=== PATIENT | male | born 2000 | race Caucasian/White ===

== ENCOUNTER 2023-01-20 10:14 | Emergency (ER) | payer BC, OTHER ==
[~2023-01-20] VITALS: Ht 193 cm; Wt 59.0 kg
[2023-01-20] MEDS ORDERED: IV NORMAL SALINE 1000 ML BAG IV ONE (10:45)
[2023-01-20] MEDS ORDERED: KETOROLAC TROMETHAMINE 15 MG INJ IVP ONE (10:45)
[2023-01-20] MEDS ORDERED: KETOROLAC TROMETHAMINE 15 MG INJ ONE (10:55)
[2023-01-20 11:01] LABS: HEMATOCRIT 45.8 % (36.7-47.1); MEAN CORPUSCULAR VOLUME 85.3 fL (73.0-96.2); PLATELET COUNT (AUTO) 183 K/uL (152-348)
[2023-01-20 11:02] LABS: *BILIRUBIN,URIN NEGATIVE (NEGATIVE); *BLOOD, URINE 3+ (NEGATIVE); *CLARITY,URINE SLIGHTLY CLOUDY (CLEAR); *COLOR,URINE YELLOW (YELLOW); *KETONES,URINE NEGATIVE (NEGATIVE); *UROBILINOGEN,URINE 0.2 E.U./dl (NORMAL); LEUKOCYTE ESTERASE ,URINE NEGATIVE (NEGATIVE); NITRITE, URINE NEGATIVE (NEGATIVE); UGLUCOSE NEGATIVE (NEGATIVE)
[2023-01-20 11:10] LABS: POTASSIUM 4.1 mmol/L (3.5-5.1)
[2023-01-20 11:16] LABS: BILIRUBIN,DIRECT 0.1 mg/dL (0.0-0.2); BILIRUBIN,TOTAL 0.4 mg/dL (0.2-1.0); TOTAL PROTEIN, SERUM 7.8 g/dL (6.4-8.2)
[2023-01-20] MEDS ORDERED: HYDR-3974 PO (12:36)
[2023-01-20] MEDS ORDERED: ONDA4TAB5 PO (12:36)
[2023-01-20] MEDS ORDERED: TAMS-3 PO (12:36)
[2023-01-20] MEDS ORDERED: IBUP-1955 PO (12:36)
--- NOTE | 2023-01-20 12:55 | NUR ---
IV removed. Catheter intact and site benign. Pressure and 4x4 gauze applied to site. No bleeding noted.
--- NOTE | 2023-01-20 13:00 | NUR ---
Patient discharged to home in stable condition. Written and verbal after care instructions given. Patient verbalizes understanding of instructions. Stressed follow up or return to ER for worsening s/s.
[2023-01-20 13:25] LABS: BACTERIA,URINE FEW /HPF (NONE SEEN); RBC,URINE 80-100 /HPF (0-3); SQUAMOUS EPITHELIAL CELL,UR FEW /HPF (NONE SEEN); WBC,URINE 0-3 /HPF (0-3)
[2023-01-20 13:26] LABS: CALCIUM OXALATE CRYSTALS,UR FEW /HPF (NONE SEEN); YEAST,URINE FEW /HPF (NONE SEEN)
== END 2023-01-20 13:21 | disposition home or self-care (01) ==
LOC: ER 10:14
DX: N20.0 Calculus of kidney (principal); R30.0 Dysuria; R33.9 Retention of urine, unspecified
CPT/HCPCS: 99285; 74176; 96374; 76770; 96361; 80076; 80048; 81001; 83690; 85025; 36415; 76870; J1885; J7040; A4663